=== PATIENT | female | born 1975 | race Caucasian/White ===

== ENCOUNTER → 2018-05-10 08:21 | Outpatient (CLI) | payer OTHER, MEDICAID, SELFPAY ==
[2018-05-10 08:54] LABS: Influenza A and B by PCR Rapid Negative (Negative)
== END ==
PROVIDERS: PCP Family Medicine; Visit Provider Physician Assistant
DX: R52 Pain, unspecified (principal)
CPT/HCPCS: 87400

== ENCOUNTER → 2018-10-19 09:34 | Outpatient (CLI) | payer OTHER, MEDICAID, SELFPAY ==
--- NOTE | 2018-10-19 09:39 | DI.MRI.S_ITS ---
PROCEDURE: MR SHOULDER LT WO CON INDICATIONS: Rotator cuff tear TECHNIQUE: Noncontrast oblique coronal T2 fast spin echo with fat saturation, oblique sagittal T1 spin echo and T2 fast spin echo with fat saturation, axial T1 spin echo and T2 fast spin echo with fat saturation through the shoulder. COMPARISON: [facility], MR, SHOULDER WITHOUT CONTRAST, 07/28/2016, 20:22. FINDINGS: Image quality: Diagnostic and Rotator cuff: There is moderate thinning identified involving the distal supraspinatus tendon with at least a moderate grade articular surface partial thickness tear involving the distal margin of the tendon. Mild corresponding tendinopathy is present. There is mild infraspinatus tendinopathy. The teres minor and subscapularis tendons appear to be within normal limits. There is no significant atrophy of the rotator cuff muscles. Bones and bursae: There is no acute fracture, dislocation, or suspicious osseous lesion identified involving the osseous structures of the left shoulder. There are moderate degenerative changes of the glenohumeral joint with inferior marginal osteophytes and reactive/degenerative marrow edema involving the humeral head and inferior glenoid. There is a small glenohumeral joint effusion. Widening of the acromioclavicular joint appear to be present, which have occurred in the interim. A small amount of fluid is contained within the subacromial subdeltoid bursa. Capsule and soft tissues: Evaluation of the labrum and the glenohumeral ligaments is difficult without intra-articular contrast. Mild inferior labral tearing is suspected. No detached labral fragment or large paralabral cysts are identified. The long head of the biceps tendon is normally positioned within the bicipital groove and is otherwise intact and unremarkable. No acute injuries are suspected involving the glenohumeral ligaments. IMPRESSION: 1. Moderate grade articular surface partial thickness tear of the distal supraspinatus tendon. 2. Mild infraspinatus tendinopathy. 3. Probable mild inferior labral tearing. 4. Moderate degenerative changes of the glenohumeral joint have progressed in the interim. 5. Small glenohumeral joint effusion. 6. Widening of the acromioclavicular joint is likely postoperative. Dictated by: Bam Barnes M.D. on 10/19/2018 at 9:38 Approved by: Bam Barnes M.D. on 10/19/2018 at 9:52
== END ==
PROVIDERS: PCP Family Medicine; Visit Provider Family Medicine
DX: M75.112 Incomplete rotator cuff tear or rupture of left shoulder, not specified as traumatic (principal); M19.012 Primary osteoarthritis, left shoulder; M25.412 Effusion, left shoulder
CPT/HCPCS: 73221

== ENCOUNTER → 2018-11-10 09:33 | Outpatient (CLI) | payer OTHER, MEDICAID, SELFPAY ==
[2018-11-10 10:09] LABS: Influenza A and B by PCR Rapid Negative (Negative)
== END ==
PROVIDERS: PCP Family Medicine; Visit Provider Physician Assistant
DX: R05 Cough (principal)
CPT/HCPCS: 87400

== ENCOUNTER → 2018-11-10 09:45 | Outpatient (CLI) | payer OTHER, MEDICAID, SELFPAY ==
--- NOTE | 2018-11-10 09:47 | DI.RAD.S_ITS ---
PROCEDURE: XR CHEST 2V INDICATIONS: cough TECHNIQUE: 2 views of the chest were acquired. COMPARISON: [facility], CHEST 1 VIEW, 10/19/2015, 18:00. [facility], CHEST 2 VIEW, 08/26/2015, 20:09. FINDINGS: Surgical changes and devices: Changes of the lower cervical spine are present. Lungs and pleura: Lungs are clear. No pleural effusions or pneumothorax. Mediastinum: Mediastinal contours are normal. Heart size is normal. Bones and chest wall: No suspicious bony abnormalities. There appear to be postoperative changes of the distal clavicles. Soft tissues appear unremarkable. IMPRESSION: Unremarkable chest. No acute cardiopulmonary process is evident. Dictated by: Bam Barnes M.D. on 11/10/2018 at 9:06 Approved by: Bam Barnes M.D. on 11/10/2018 at 9:13
== END ==
PROVIDERS: PCP Family Medicine; Visit Provider Physician Assistant
DX: R05 Cough (principal)
CPT/HCPCS: 71046; 87400

== ENCOUNTER 2019-06-14 08:05 | Emergency (ER) | payer OTHER, MEDICAID, SELFPAY ==
[2019-06-14 08:05] VITALS: BP 156/96; PULSE 100; RESP 22; TEMP 36.9; O2SAT 99; BMI 44.4
--- NOTE | 2019-06-14 08:07 | ED_ITS ---
HPI - Chest Pain General Chief Complaint: Chest Pain Stated Complaint: chest pain,shortness of breath,nausea Time Seen by Provider: 06/14/19 08:07 Source: patient Mode of arrival: ambulatory Limitations: no limitations History of Present Illness HPI narrative: This is a 43-year-old female who comes in with complaint of chest pain, patient states that it is sort of in her left sternal border, radiates to her back towards her shoulder blade. Patient states she has been having symptoms pretty much constantly but she has had 2 prior ER visits at [facility] for the same around the and 10 of June. Patient states that the 1st episode started while she was on a treadmill the 2nd 1 she was resting, today's started while she was walking up the stairs after taking her dog out for a walk. Patient states that she has not had any fevers or chills. She feels short of breath. She denies any cough cold or congestion. She feels nauseated but is not having active vomiting. No issues with diarrhea or constipation, no frequency urgency or dysuria. She has had her gallbladder out and states it do es feel a little bit similar to when she had gallbladder issues. Patient states that nothing really seems to make it better. She states she got a GI cocktail in Ativan at the other hospital which sort of helped her heart rate but did help her symptoms. She states this episodes been about an hour, the other episodes were only about 30 minutes. Nothing really seems to make it worse. She does ta ke medication for mood as well as estrogen. Patient states her father had issues with diabetes and heart issues. She denies any blood clot issues in her family. No prior blood clots. No long distance travel. Related Data Home Medications Medication Instructions Recorded Confirmed estradiol 1 mg tablet 1.5 mg PO DAILY 05/10/18 06/14/19 duloxetine 20 mg capsule,delayed 40 mg PO DAILY 09/20/18 06/14/19 release [id number]-[id number]-cod 1 cap PO TID PRN 06/14/19 hydrocodone-acetaminophen 1 tab PO Q6H PRN 06/14/19 06/14/19 naproxen 500 mg PO BID 06/14/19 06/14/19 promethazine 25 mg PO TID PRN 06/14/19 06/14/19 Previous Rx's Medication Instructions Recorded bupropion HCl 300 mg 24 hr tablet, 300 mg PO QAM #90 tab 05/08/19 extended release hydrocodone-acetaminophen [[place]] 1 tab PO Q6H PRN #5 tab 06/14/19 omeprazole 40 mg PO DAILY #20 cap 06/14/19 Allergies Allergy/AdvReac Type Severity Reaction Status Date / Time No Known Drug Allergies Allergy Verified 06/14/19 08:30 Review of Systems Review of Systems ROS Unobtainable: All systems reviewed & are unremarkable except as noted in HPI and below Constitutional Constitutional: Denies chills, Denies fever(s), Denies lethargy and Denies weakness Cardiovascular Cardiovascular: Reports chest pain, Reports chest pain at rest, Reports chest pain with activity, Denies diaphoresis, Denies syncope, Reports rapid heart rate, Denies edema, Denies irregular heart rhythm, Denies lightheadedness, Denies radiating jaw, neck or arm pain (radoates to back), Denies palpitations, Reports dyspnea and Denies orthopnea Respiratory Respiratory: Denies change in phlegm color, Denies chest congestion, Denies cough, Denies hemoptysis, Denies excessive phlegm production, Reports dyspnea and Denies wheezing Gastrointestinal Gastrointestinal: Denies abdominal pain, Denies melena, Denies hematochezia, Denies change in bowel habits, Denies diarrhea, Reports nausea and Denies vomiting Genitourinary Genitourinary: Denies hematuria, Denies urinary frequency, Denies dysuria, Denies flank pain, Denies urinary incontinence, Denies urinary hesitancy and Denies urinary urgency Musculoskeletal Musculoskeletal: Reports back pain (radiates to back) Integumentary/Breasts Skin/Breast: Denies rash Neurologic Neurologic: Denies syncope and Denies weakness Endocrine Endocrine: Denies palpitations Allergic/Immunologic Allergic/Immunologic: Denies wheezing PFSH Medical History Ankle pain (Resolved 02/2015) Anxiety (Chronic 2011) Chronic back pain (Chronic 06/1997) Depression (Chronic 2011) Frequent UTI (Chronic) Generalized headaches (Chronic 2012) GERD (gastroesophageal reflux disease) (Chronic) Heavy menstrual period (Resolved) Painful menstrual periods (Resolved) Shoulder pain (Resolved 11/2014) Sleep apnea (Chronic 2008) Urinary incontinence (Chronic) Surgical History History of bladder suspension procedure (12/18/15) History of repair of ACL (Resolved 2011) History of right salpingo-oophorectomy (Resolved ~2014) History of surgery on arm (Resolved) Status post laparoscopic cholecystectomy Status post rotator cuff repair Status post rotator cuff repair Status post tubal ligation Status post vaginal hysterectomy (08/19/15) Family History (Updated 07/03/15 @ 00:00 by Conversion Provider) Father Age: 64 Diabetes mellitus Heart disease Hypertension Grandfather Cancer Grandfather Age: 93 Cancer Social History Smoking Status: Former smoker alcohol intake: never substance use type: does not use Family History Father Age: 64 Diabetes mellitus Heart disease Hypertension Grandfather Cancer Grandfather Age: 93 Cancer Social History Smoking Status: Former smoker alcohol intake: never substance use type: does not use Exam Narrative Exam Narrative: GENERAL: Alert and oriented x three, obese, well-appearing female in mild distress. Patient appears anxious. HEENT: Head normocephalic, atraumatic, EOMI, pupils reactive, face symmetric, moist mucous membranes NECK: Supple, full range of motion CARDIOVASCULAR: Regular rate and rhythm without murmurs, rubs or gallops. Non- reproducible chest pain. RESPIRATORY: Breath sounds equal bilaterally, no wheezes rales or rhonchi. ABDOMEN: Soft, nontender. Normoactive bowel sounds all 4 quadrants. No guarding or rebound, rigidity, no mass, no pulsatile mass. : No CVA tenderness EXTREMITIES: Normal range of motion, no clubbing or edema. Neurovascularly intact NEUROLOGICAL: Cranial nerves II through XII grossly intact. Moving all extremities SKIN: Warm, dry, no petechiae, no rashes or lesions. Initial Vital Signs Initial Vital Signs: Vital Signs Temperature 98.4 F 06/14/19 08:05 Pulse Rate 100 H 06/14/19 08:05 Respiratory Rate 22 06/14/19 08:05 Blood Pressure 156/96 H 06/14/19 08:05 Pulse Oximetry 99 06/14/19 08:05 Course Orders Ordered: Discontinued Medications Aspirin (Aspirin Chew) 243 mg PO NOW ONE Stop: 06/14/19 08:20 Last Admin: 06/14/19 08:30 Dose: 243 mg Documented by: PALMER Sodium Chloride (Normal Saline 0.9%) 1,000 mls @ 150 mls/hr IV CONT ARLIN Last Infusion: 06/14/19 10:51 Dose: 0 mls/hr Documented by: Admin: 06/14/19 08:30 Dose: 150 mls/hr Documented by: PALMER Morphine Sulfate (Morphine) 2 mg IV NOW ONE Stop: 06/14/19 08:20 Last Admin: 06/14/19 08:30 Dose: 2 mg Documented by: PALMER Morphine Sulfate (Morphine) 4 mg IV NOW ONE Stop: 06/14/19 09:41 Last Admin: 06/14/19 09:48 Dose: 4 mg Documented by: PALMER Vital Signs Vital signs: Vital Signs - 8 hr 06/14/19 08:05 06/14/19 09:00 Temperature 98.4 F Pulse Rate 100 H 89 Respiratory Rate 22 16 Blood Pressure 156/96 H Blood Pressure [Left Arm] 144/81 H Pulse Oximetry 99 97 MDM - Chest Pain Lab Data Attestation: I reviewed the patient's lab results. Result diagrams: 06/14/19 08:15 06/14/19 09:00 Labs: Lab Results 06/14/19 06/14/19 06/14/19 Range/Units 08:15 08:15 09:00 WBC 5.2 (4.5-11.0) X10^3/uL RBC 4.48 (4.0-5.2) X10^6/uL Hgb 14.4 (12.0-16.0) g/dL Hct 41.3 (36-46) % MCV 92.3 (80-100) fL MCH 32.0 (26-34) PG MCHC 34.7 (30-36) % RDW 12.8 (11.6-14.8) % Plt Count 294 (150-400) X10^3/uL Neut % (Auto) 56.1 (50-75) % Lymph % (Auto) 36.0 (25-40) % Stephens % (Auto) 6.1 (3-14) % Eos % (Auto) 1.0 L (2-4) % Baso % (Auto) 0.8 (0-2) % Neut # (Auto) 2900 (3977-7471) /uL Lymph # (Auto) 1900 (9447-0437) /uL Stephens # (Auto) 300 (0-900) /uL Eos # (Auto) 100 (0-450) /uL Baso # (Auto) 0 (0-100) /uL PT 11.1 (10.1-12.7) SECONDS INR 1.0 (0.9-1.3) APTT 34 (26.4-36.2) SECONDS D-Dimer < 200 (<230) ng/mL Sodium 137 (137-145) mmol/L Potassium 4.2 (3.4-5.1) mmol/L Chloride 102 (98-107) mmol/L Carbon Dioxide 24 (22-32) mmol/L BUN 15 (7-17) mg/dL Creatinine 0.60 (0.52-1.04) mg/dL Estimated GFR > 60.0 (>60) mL/min BUN/Creatinine Ratio 25.0 H (6-22) Glucose 109 H (70-100) mg/dL Calcium 9.3 (8.4-10.2) mg/dL Total Bilirubin 0.8 (0.2-1.3) mg/dL AST 35 (14-36) IU/L ALT 35 (9-52) IU/L Alkaline Phosphatase 68 (38-126) U/L Total Creatine Kinase 59 (30-135) U/L CK-MB (CK-2) TNP CK-MB (CK-2) Rel Index TNP Troponin I < 0.012 (0.01-0.034) ng/mL Total Protein 7.6 (6.3-8.2) g/dL Albumin 4.5 (3.5-5.0) g/dL Globulin 3.1 (1.7-4.1) g/dL Albumin/Globulin Ratio 1.5 (1.0-2.8) Lipase 50 (23-300) U/L Imaging Data CTA chest/abd/pelvis: Radiologist's impression: [address] [address] [address] Scan Report Signed Patient: Lesly Pozo KMR#: [id number] : 1975Acct:[id number] Age/Sex: 43 / FDate of Service: 06/14/19 Loc: ED Accession Number: [id number] Procedure: CT angio chest abdomen pelvis Ordering Provider: Karrie Levine D.O. PROCEDURE: CT ANGIO CHEST ABDOMEN PELVIS INDICATIONS: chest pain, radiates to back, now complaining of abd pain TECHNIQUE: Precontrast 5 mm thick sections acquired from the lung apices to the iliac crests. After the administration of intravenous contrast, 2.5 mm thick sections again acquired from the lung apices to the iliac crests. Maximum intensity projection (MIP) oblique sagittal and coronal reformats were then acquired. For radiation dose reduction, the following was used: automated exposure control. COMPARISON: [facility], CR, XR CHEST 1V, 06/14/2019, 8:24. [facility], CR, XR CHEST 2V, 11/10/2018, 9:53. FINDINGS: Image quality: Excellent. AORTA: Intramural hematoma: Absent. Maximum hematoma thickness: Not applicable. Focal contrast enhancement: Intramural blood pool (< 2 mm neck or imperceptible communication with aortic lumen): Absent. Ulcer-like projection (broad communication with aortic lumen > 3 mm): Absent. Dissection: Absent [place] classification: Not applicable. Maximum aortic diameter: 3.2 cm. [If [place] A dissection, > 5.0 cm has a poorer prognosis. If [place] B dissection, > 4.0 cm has a poorer prognosis.] Periaortic hematoma: Absent. CHEST: Lungs and pleura: No acute airspace opacities. No pleural effusions or pneumothorax. Central and peripheral airways are patent and normal in caliber. Mediastinum: Heart size is normal. No pericardial effusion. No mediastinal or hilar adenopathy by size criteria. Central pulmonary arteries are normal in size. Esophagus is normal in caliber. No hiatal hernias. Bones and chest wall: No axillary adenopathy by size criteria. Thyroid gland appears normal where well visualized. No suspicious bony lesions. No vertebral body compression fractures. ABDOMEN: Vasculature: Celiac trunk and mesenteric arteries are patent. Renal arteries are also patent. Solid organs: Liver is normal in size and enhancement. Gallbladder is surgically absent. Biliary system is non dilated. Pancreas enhances normally. Spleen is normal in size and enhancement. No adrenal nodules. Both kidneys are normal in size and enhancement, without hydronephrosis. Peritoneum and bowel: No free fluid or air. Bowel loops are normal in caliber and wall thickness. Nodes and vessels: No retroperitoneal or mesenteric adenopathy by size criteria. Inferior vena cava is normal in morphology. Miscellaneous: No ventral hernias. PELVIS: Genitourinary: Bladder wall thickness is normal. Miscellaneous: No inguinal hernias or adenopathy. No ventral hernias. Bones: No suspicious bony lesions. No vertebral body compression fractures. IMPRESSION: Source of reported chest pain is not identified. There is no evidence of aortic dissection or aneurysm. No pulmonary embolus is found. Prior cholecystectomy. Dictated by: Dennis Rodríguez M.D. on 06/14/2019 at 10:10 Approved by: Dennis Rodríguez M.D. on 06/14/2019 at 10:15 ECG Data Attestation: I personally reviewed and interpreted this ECG as follows: Prior ECG tracings: available for review Interpretation: Sinus rhythm with a rate of 94 P are 155 QRS is 79 and QTC of 397. No ST changes appreciated. Patient has some motion artifact in V6. Patient has prior from 03/1803/30/2016 which appears similar. [facility] Narrative Medical decision making narrative: Attempting to get records from [facility]. Records indicate patient had lab work including D-dimer, EKG and chest x-ray all which were negative including troponin on 2 separate occasions. Patient did not have any changes to LFTs. Here she is complaining of chest pain radiating to her back but no also complaining a little bit to her abdomen. Morphine was n ot helpful for her pain at 2 mg. Patient appears anxious. We discussed doing some further evaluation as lab work, EKG and chest x-ray are also negative today. Patient is agreeable to this. Patient CTA is negative, discussed with patient no acute findings today. My suspicion for a ACS is low. Patient has had 3 separate visits with troponins which are negative with no acute changes to EKG she has been having pretty much constant chest pain in the setting of a negative EKG and troponin. We discussed that we are not finding signs of pulmonary embolism, dissection, no infection in the lungs, no infection in the abdomen, no signs of pancreatitis, cholecystitis or other potential causes of her chest/abdominal pain. Patient I discussed plan to Street do a short course of medication for pain as today's medication was helpful. We also discussed possibly getting a scope or even stress testing with her physician although my suspicion for a cardiac cause is low. Patient and I discussed starting a short course of omeprazole to see if this was helpful for her symptoms. She is also to call her primary care to set of short-term follow- up. We did discuss whether anxiety may be playing a, she does not think that it is although she does appear anxious while in the room. Discharge Plan Departure Patient Disposition: Home Clinical Impression: Atypical chest pain Discharge Date/Time: 06/14/19 10:58 Instructions: DI for Atypical Chest Pain Activity Restrictions/Additional Instructions: Follow-up with your primary care, call for an appointment today. You may benefit from further testing as an outpatient. Start omeprazole 40mg daily, see if this improves your symptoms over the next several days. Take medications as prescribed, these medications can make you sleepy do not drive, perform hazardous activities or make any major decisions while taking them. Return to the emergency department for fevers greater than 100.4 F, passing out, persistent vomiting, new chest pain or shortness of breath, black or bloody stools, swelling of your extremities or other new or concerning symptoms. Prescriptions: New omeprazole 40 mg capsule,delayed release(DR/EC) 40 mg PO DAILY Qty: 20 RF: 0 hydrocodone-acetaminophen [[place]] 5-325 mg tablet 1 tab PO Q6H PRN (Reason: pain) Qty: 5 RF: 0 No Action estradiol 1 mg tablet 1.5 mg PO DAILY RF: 0 duloxetine [[place]] 20 mg capsule,delayed release(DR/EC) 40 mg PO DAILY RF: 0 bupropion HCl 300 mg tablet extended release 24 hr 300 mg PO QAM Qty: 90 RF: 0 hydrocodone-acetaminophen 5-325 mg tablet 1 tab PO Q6H PRN (Reason: pain) RF: 0 dnzlnjrkjk-rtroqgmgpm-unm-cod [id number] mg capsule 1 cap PO TID PRN (Reason: Headache) RF: 0 promethazine 25 mg tablet 25 mg PO TID PRN (Reason: Nausea) RF: 0 naproxen 500 mg tablet 500 mg PO BID RF: 0 Referrals: Torrey,Jaquelin, DO [Primary Care Provider] -
--- NOTE | 2019-06-14 08:19 | DI.RAD.S_ITS ---
PROCEDURE: XR CHEST 1V INDICATIONS: chest pain TECHNIQUE: One view of the chest was acquired. COMPARISON: [facility], CR, XR CHEST 2V, 11/10/2018, 9:53. FINDINGS: Surgical changes and devices: Post surgical changes in the cervicothoracic junction with surgical fusion. Lungs and pleura: Lungs are clear. No pleural effusions or pneumothorax. Mediastinum: Mediastinal contours appear normal. Heart size is normal. Bones and chest wall: No suspicious bony lesions. Overlying soft tissues appear unremarkable. IMPRESSION: No acute cardiopulmonary disease. Dictated by: Jennifer Painting M.D. on 06/14/2019 at 9:42 Approved by: Jennifer Painting M.D. on 06/14/2019 at 9:43
[2019-06-14 08:28] LABS: Add Manual Diff / Slide Review NO; Basophils Absolute Auto 0 /uL (0-100); Basophils Percent Auto 0.8 % (0-2); Eosinophils Absolute Auto 100 /uL (0-450); Hematocrit 41.3 % (36-46); Hemoglobin 14.4 g/dL (12.0-16.0); Lymphocytes Absolute Auto 1900 /uL (1100-4500); Mean Corpuscular HGB Conc 34.7 % (30-36); Mean Corpuscular Volume 92.3 fL (80-100); Monocytes Absolute Auto 300 /uL (0-900); Monocytes Percent Auto 6.1 % (3-14); Neutrophils Absolute Auto 2900 /uL (1500-7000); Neutrophils Percent Auto 56.1 % (50-75); Platelet Count 294 X10^3/uL (150-400); Red Blood Cell Count 4.48 X10^6/uL (4.0-5.2); Red Cell Distribution Width 12.8 % (11.6-14.8); White Blood Cell Count 5.2 X10^3/uL (4.5-11.0)
[2019-06-14] MEDS: ASPIRIN 81 MG CHEW TAB 243 MG PO (08:30)
[2019-06-14] MEDS: SODIUM CHLORIDE 0.9% 1,000 ML 150 ML IV (08:30)
[2019-06-14] MEDS: MORPHINE 2 MG/ML INJ IV (08:30)
[2019-06-14 08:33] LABS: Prothrombin Time 11.1 SECONDS (10.1-12.7)
[2019-06-14 08:36] LABS: D Dimer < 200 ng/mL (<230); PTT Partial Thromboplastin Tim 34 SECONDS (26.4-36.2)
[2019-06-14 09:00] VITALS: BP 144/81; PULSE 89; RESP 16; O2SAT 97
[2019-06-14 09:25] LABS: Alanine Aminotransferase 35 IU/L (9-52); Albumin 4.5 g/dL (3.5-5.0); Albumin Globulin Ratio 1.5 (1.0-2.8); Alkaline Phosphatase 68 U/L (38-126); Aspartate Aminotransferase 35 IU/L (14-36); Bilirubin Total 0.8 mg/dL (0.2-1.3); Blood Urea Nitrogen 15 mg/dL (7-17); Calcium 9.3 mg/dL (8.4-10.2); Carbon Dioxide 24 mmol/L (22-32); Chloride 102 mmol/L (98-107); Creatine Kinase 59 U/L (30-135); Estimated Glomerular Filt Rate > 60.0 mL/min (>60); Globulin 3.1 g/dL (1.7-4.1); Glucose 109 mg/dL (70-100); HEMOLYSIS < 15 (0-50); Lipase 50 U/L (23-300); Potassium 4.2 mmol/L (3.4-5.1); Sodium 137 mmol/L (137-145); Total Protein 7.6 g/dL (6.3-8.2)
[2019-06-14 09:36] LABS: Troponin I < 0.012 ng/mL (0.01-0.034)
[2019-06-14] MEDS: MORPHINE 4 MG/ML INJ IV (09:48)
--- NOTE | 2019-06-14 09:57 | DI.CT.S_ITS ---
PROCEDURE: CT ANGIO CHEST ABDOMEN PELVIS INDICATIONS: chest pain, radiates to back, now complaining of abd pain TECHNIQUE: Precontrast 5 mm thick sections acquired from the lung apices to the iliac crests. After the administration of intravenous contrast, 2.5 mm thick sections again acquired from the lung apices to the iliac crests. Maximum intensity projection (MIP) oblique sagittal and coronal reformats were then acquired. For radiation dose reduction, the following was used: automated exposure control. COMPARISON: [facility], CR, XR CHEST 1V, 06/14/2019, 8:24. [facility], CR, XR CHEST 2V, 11/10/2018, 9:53. FINDINGS: Image quality: Excellent. AORTA: Intramural hematoma: Absent. Maximum hematoma thickness: Not applicable. Focal contrast enhancement: Intramural blood pool (< 2 mm neck or imperceptible communication with aortic lumen): Absent. Ulcer-like projection (broad communication with aortic lumen > 3 mm): Absent. Dissection: Absent [place] classification: Not applicable. Maximum aortic diameter: 3.2 cm. [If [place] A dissection, > 5.0 cm has a poorer prognosis. If [place] B dissection, > 4.0 cm has a poorer prognosis.] Periaortic hematoma: Absent. CHEST: Lungs and pleura: No acute airspace opacities. No pleural effusions or pneumothorax. Central and peripheral airways are patent and normal in caliber. Mediastinum: Heart size is normal. No pericardial effusion. No mediastinal or hilar adenopathy by size criteria. Central pulmonary arteries are normal in size. Esophagus is normal in caliber. No hiatal hernias. Bones and chest wall: No axillary adenopathy by size criteria. Thyroid gland appears normal where well visualized. No suspicious bony lesions. No vertebral body compression fractures. ABDOMEN: Vasculature: Celiac trunk and mesenteric arteries are patent. Renal arteries are also patent. Solid organs: Liver is normal in size and enhancement. Gallbladder is surgically absent. Biliary system is non dilated. Pancreas enhances normally. Spleen is normal in size and enhancement. No adrenal nodules. Both kidneys are normal in size and enhancement, without hydronephrosis. Peritoneum and bowel: No free fluid or air. Bowel loops are normal in caliber and wall thickness. Nodes and vessels: No retroperitoneal or mesenteric adenopathy by size criteria. Inferior vena cava is normal in morphology. Miscellaneous: No ventral hernias. PELVIS: Genitourinary: Bladder wall thickness is normal. Miscellaneous: No inguinal hernias or adenopathy. No ventral hernias. Bones: No suspicious bony lesions. No vertebral body compression fractures. IMPRESSION: Source of reported chest pain is not identified. There is no evidence of aortic dissection or aneurysm. No pulmonary embolus is found. Prior cholecystectomy. Dictated by: Dennis Rodríguez M.D. on 06/14/2019 at 10:10 Approved by: Dennis Rodríguez M.D. on 06/14/2019 at 10:15
--- NOTE | 2019-06-14 10:08 | PC.NURSE ---
Pt RR is 35 when someone is in the room. Decreases to 25 when alone
[2019-06-14 10:30] VITALS: BP 126/75; PULSE 83; RESP 21; O2SAT 97
== END 2019-06-14 10:58 | disposition home or self-care (01) ==
PROVIDERS: Emergency Provider Emergency Medicine; PCP Family Medicine
DX: R07.89 Other chest pain (principal)
CPT/HCPCS: 36415; 36591; 71045; 71275; 74174; 80053; 82550; 83690; 84484; 85025; 85379; 85610; 85730; 93005; 96361; 96374; 96375; 99283; 99285; J2270; Q9967

== ENCOUNTER → 2019-07-12 08:26 | Outpatient (CLI) | payer OTHER, MEDICAID, SELFPAY ==
[2019-07-12 10:09] LABS: Cholesterol 305 mg/dL (140-199); HDL Cholesterol 64 mg/dL (40-60); LDL Cholesterol Calculated 206 mg/dL (<100); Triglycerides 175 mg/dL (35-150)
[2019-07-12 10:38] LABS: Thyroid Stimulating Hormone 0.55 uIU/mL (0.47-4.68)
== END ==
PROVIDERS: PCP Family Medicine; Visit Provider Family Medicine
DX: F32.9 Major depressive disorder, single episode, unspecified (principal); F41.9 Anxiety disorder, unspecified; G43.909 Migraine, unspecified, not intractable, without status migrainosus; R07.9 Chest pain, unspecified
CPT/HCPCS: 36415; 80061; 84443

== ENCOUNTER → 2019-07-24 08:17 | Outpatient (CLI) | payer OTHER, MEDICAID, SELFPAY ==
--- NOTE | 2019-07-24 09:18 | PM.TREADMILL ---
Cardiac Stress Test Report Referral & Results Date Patient Seen: 07/24/19 Requesting provider: Jaquelin Hirsch Rest ECG: Chest discomfort Procedure Note: After both written and verbal informed consent the patient had an IV started by the diagnostic imaging RN and then was hooked up to the treadmill monitoring system. The patient was placed on the treadmill at 1 mile an hour with no elevation and was then injected with the [place] scan material. The Cardiolite was then immediately administered. The patient spent an additional 2-3 minutes on the treadmill before being returned to the [facility] in the supine position. The patient had a normal response to all infused materials. Impression: See perfusion imaging report for details regarding possible ischemia Please note: Actual ECG tracings can be found in the PACS system.
--- NOTE | 2019-07-25 18:03 | DI.NM.S_ITS ---
DATE OF SERVICE: 07/24/2019 PROCEDURE: Pharmacological perfusion study. INDICATIONS: Chest pain, preoperative evaluation, hyperlipidemia.. RADIOPHARMACEUTICAL: 26.2 mCi technetium-99m Myoview IV was injected at stress and 25.0 mCi technetium-99m Myoview IV was injected at rest. CARDIAC STRESS: Patient underwent IV Lexiscan perfusion study under the supervision of an attending staff using standard IV Lexiscan protocol. She remained hemodynamically stable. Baseline EKG revealed sinus rhythm with artifacts. During stress, there were no convincing ischemic changes. There were no significant arrhythmias. No significant symptoms were reported. RAW DATA: Significant breast shadow was seen. Patient's weight is 245 pounds. GATED STUDY: Resting stress LV ejection fraction 71%. Stress LV ejection fraction 74%. No wall motion abnormalities. TID ratio is 0.1.23. This is a pharmacological perfusion study. Resting LV end-diastolic volume is 82 mL. Lung/heart ratio is 0.29, which is within normal limits. MYOCARDIAL PERFUSION SCAN: Stress supine and resting supine images revealed small-sized mildly decreased perfusion of anterior which got resolved during prone images suggestive of breast tissue attenuation artifact. I don't see any convincing ischemia infarction pattern. CONCLUSION: I will call this study a normal myocardial perfusion study with evidence of breast tissue attenuation artifact which got resolved during prone images. Left ventricular (LV) function is preserved. Overall, this is a low- risk myocardial perfusion study. Lesly oPzo - [employer]/rodrigo/ab doc#: [id number]/job#: [id number] dd: 07/25/2019 17:21:00 dt: 07/25/2019 17:52:00 DICTATING MD/COPIES TO: Vinod See MD COPIES MNE: TOBIN
== END ==
PROVIDERS: PCP Family Medicine; Visit Provider Family Medicine
DX: Z01.818 Encounter for other preprocedural examination (principal); R07.89 Other chest pain; E78.5 Hyperlipidemia, unspecified; F41.9 Anxiety disorder, unspecified
CPT/HCPCS: 78452; 93016; 93017; 93018; A9502; J2785

== ENCOUNTER → 2019-11-04 08:47 | Outpatient (CLI) | payer OTHER, MEDICAID, SELFPAY ==
--- NOTE | 2019-11-04 08:49 | DI.RAD.S_ITS ---
PROCEDURE: XR KNEE RT 3V INDICATIONS: Tibial pain and bruisng post fall, landed on knee TECHNIQUE: 3 views of the knee were acquired. COMPARISON: [facility], , KNEE 3V RIGHT, 11/25/2016, 14:56. FINDINGS: Bones: Postoperative changes of the right knee are suggestive of previous ACL reconstruction. No acute fracture or dislocation is identified. Degenerative changes of the right knee are similar to the prior exam and most pronounced within the patellofemoral compartment, which have slightly progressed in the interim. Soft tissues: No joint effusion. No suspicious soft tissue calcifications. IMPRESSION: 1. No acute fracture of the right knee. 2. Postoperative changes of the knee suggest previous ACL reconstruction. 3. Mild to moderate degenerative changes have slightly progressed in the interim. Dictated by: Bam Barnes M.D. on 11/04/2019 at 8:25 Approved by: Bam Barnes M.D. on 11/04/2019 at 8:26
--- NOTE | 2019-11-04 08:49 | DI.RAD.S_ITS ---
PROCEDURE: XR HIP W PEL IF DONE LT 2V INDICATIONS: Groin pain after fall TECHNIQUE: 2 views of the hip were acquired. COMPARISON: [facility], CT, ABDOMEN/PELVIS WITHOUT CONTRAS, 07/29/2016, 7:14. FINDINGS: Bones: No displaced fracture or dislocation is identified involving the imaged osseous structures of the pelvis or left hip. Mild degenerative changes of the left hip are noted. There also are at least mild degenerative changes of the other pelvic joints. No suspicious osseous lesions are identified. Soft tissues: No suspicious soft tissue calcifications or masses. IMPRESSION: Mild degenerative changes of the left hip without a displaced fracture evident. If the patient's symptoms persist or there is high clinical concern for bony or soft tissue trauma, please consider MRI, CT, followup radiographic imaging, or nuclear medicine imaging for further evaluation. Dictated by: Bam Barnes M.D. on 11/04/2019 at 8:24 Approved by: Bam Barnes M.D. on 11/04/2019 at 8:25
== END ==
PROVIDERS: PCP Family Medicine; Visit Provider Nurse Practitioner
DX: S80.11XA Contusion of right lower leg, initial encounter; M79.661 Pain in right lower leg; R10.32 Left lower quadrant pain; W19.XXXA Unspecified fall, initial encounter
CPT/HCPCS: 73502; 73562

== ENCOUNTER → 2021-01-21 10:30 | Outpatient (CLI) | payer OTHER, MEDICAID, SELFPAY ==
--- NOTE | 2021-01-21 11:49 | PM.TREADMILL ---
Cardiac Stress Test Report Referral & Results Date Patient Seen: 01/21/21 Time Patient Seen: 11:49 Requesting provider: Azael Desai Indication: precordial pain Rest ECG: sinus rhythm with early repolarization Procedure Note: After Lexiscan injection had minimal dyspnea, no chest discomfort No significant ST changes after Lexiscan injection No ectopy Impression: Normal Lexiscan stress test MIBI images pending Please note: Actual ECG tracings can be found in the PACS system.
--- NOTE | 2021-01-22 18:20 | DI.NM.S_ITS ---
DATE OF SERVICE: 01/21/2021 PROCEDURE PERFORMED: Pharmacologic vasodilator stress and rest myocardial perfusion imaging study with gating to assess ejection fraction and regional wall motion. ORDERING PROVIDER: Dr. Azael Desai. INDICATIONS: The patient is a 45-year-old female with exertional chest discomfort. PHARMACOLOGIC VASODILATOR STRESS: Per protocol, 0.4 mg of regadenoson was infused, augmented with walking on the treadmill. With this, she had a normal heart rate and blood pressure response to exercise, achieving a maximum heart rate of 139 BPM (80% of her predicted maximum). She had mild dyspnea but no chest discomfort. Her resting ECG is normal and there are no significant ST- segment shifts or arrhythmias with stress. Per protocol, 0.4 mg of regadenoson was infused and she was imaged 15 minutes later using a gated SPECT acquisition protocol. The following day while at rest, she was injected with 25.9 millicuries of technetium-99m Myoview and was imaged 30 minutes later using a gated SPECT acquisition protocol. FINDINGS: 1. Raw data: There is fair myocardial tracer uptake with prominent breast shadows noted that clearly produce significant attenuation artifact. The lung/heart ratio is normal at 0.23 with a normal TID ratio of 0.80. 2. Quantitated gated SPECT: Post-stress post stress ejection fraction is estimated at 71% without any focal wall motion abnormality. Resting ejection fraction is 72% with a normal resting end-diastolic volume of 96 mL. 3. Myocardial perfusion imaging: Post-stress supine images shows a fairly normal myocardial perfusion pattern with a small, subtle defect in the mid anterior wall consistent with a breast attenuation artifact supported by its complete resolution on the prone images. The resting images show an identical perfusion pattern without any areas of improvement. IMPRESSION: 1. Normal myocardial perfusion study. 2. Mild fixed mid anterior perfusion defect that resolves on prone imaging, consistent with breast attenuation artifact. There is no evidence for any significant myocardial ischemia or previous myocardial infarction. 3. Normal left ventricular systolic function without any focal wall motion abnormality. 4. No angina or ECG evidence of ischemia with vasodilator stress. 5. Compared to the previous myocardial perfusion study of 07/24/2019, an identical perfusion pattern is seen today. She previously had a mid anterior defect that resolved on prone imaging and her previous ejection fraction was 74% with a resting ejection fraction of 71%. Thus, there has been no change since her previous exam. Lesly Pozo - [place]/rodrigo/donya doc#: [id number]/job#: [id number] dd: 01/22/2021 16:46:00 dt: 01/22/2021 18:04:00 DICTATING /DEBBY TO: Azael Desai MD; JUSTICE Jarrett COPIES MNE: BRIGHT; ; JUSTICE Jarrett
== END ==
PROVIDERS: PCP Registered Nurse; Visit Provider Specialist
DX: R07.2 Precordial pain (principal)
CPT/HCPCS: 78452; 93017; A9502; J2785